=== PATIENT | male | born 2000 | race Caucasian/White ===

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

== ENCOUNTER → 2020-05-22 | Outpatient (CLI) | payer OTHER ==
--- NOTE | 2020-05-22 13:49 | CT ---
EXAM DESCRIPTION: CT maxillofacial CLINICAL HISTORY: Mandibular/jaw injury. Pain COMPARISON: None Available. TECHNIQUE: Spiral CT with multiplanar reformatted images. This exam was performed according to our departmental dose-optimization program, which includes automated exposure control, adjustment of the mA and/or kV according to patient size and/or use of iterative reconstruction technique. FINDINGS: Normal position of the condylar head in the condylar fossa bilaterally. No mandible or maxilla fracture No other evidence of facial fracture. Normal orbits Chronic left maxillary sinusitis. Atelectasis of the sinus with complete soft tissue opacification. A few ethmoid air cells demonstrate mild because thickening. The other paranasal sinuses are well aerated graft normal aeration of mastoid and middle ear No calvarial or skull base lesion IMPRESSION: No mandible fracture or dislocation Electronically signed by: Geraldo Doe MD 05/22/2020 1:47 PM [employer]
== END ==
LOC: CT 12:49
PROVIDERS: ATTEND Nurse Practitioner Family
DX: S09.93XA Unspecified injury of face, initial encounter (principal)